=== PATIENT | female | born 1995 | race Caucasian/White ===

== ENCOUNTER 2017-01-18 05:52 | Day surgery (SDC) | payer BC ==
[~2017-01-18] VITALS: Ht 147.3 cm; Wt 36.7 kg
--- NOTE | ~2017-01-18 | EGD ---
EGD REPORT [facility] [address] [address] NAME: GEM ADLER : [birth year] [place]US [place] [facility] [place] [id number] AGE: 21 ADM/REG DATE : 01/18/17 MR#: [id number] REPORT SERV DATE: 01/18/17 DICTATED BY: LAILA MCCALLUM DATE: 01/18/17 REPORT STATUS : Draft [facility]: [facility] DATE: 01/18/17 End[facility] Center Patient Name: Gem Adler Date of : 1995 Attending MD: LAILA MCCALLUM MD Procedure Date No Time: 01/18/2017 Procedure: Upper GI endoscopy Indications: Dysphagia, Heartburn, Suspected esophageal reflux Referring MD: ANNA BISHOP Medicines: as per anesthesia Complications: No immediate complications. Procedure: After obtaining informed consent, the endoscope was passed under direct vision. Throughout the procedure, the patient's blood pressure, pulse, and oxygen saturations were monitored continuously. The GIF [id number] was introduced through the mouth, and advanced to the fundus of the stomach. The upper GI endoscopy was accomplished without difficulty. The patient tolerated the procedure. Findings: Moderately severe esophagitis was found in the lower third of the esophagus. A benign-appearing, intrinsic moderate stenosis was found in the lower third of the esophagus. A large amount of food (residue) was found in the cardia and in the gastric fundus. Impression: - Moderately severe esophagitis. - Benign-appearing esophageal stricture. - A large amount of food (residue) in the stomach. Recommendation: - Follow an antireflux regimen. - Continue present medications. - Repeat the upper endoscopy for retreatment. Procedure Code(s): --- Professional --- 85859, Esophagoscopy, flexible, transoral; diagnostic, including collection of specimen(s) by brushing or washing, when performed (separate procedure) Diagnosis Code(s): --- Professional --- K20.9, Esophagitis, unspecified K22.2, Esophageal obstruction R13.10, Dysphagia, unspecified EGD REPORT [facility] [address] [place], [place] [address]. [address] NAME: GEM ADLER : [birth year] [place]US [place] [facility] [place] [id number] AGE: 21 ADM/REG DATE : 01/18/17 MR#: [id number] REPORT SERV DATE: 01/18/17 DICTATED BY: LAILA MCCALLUM. DATE: 01/18/17 REPORT STATUS : Draft TRANSCRIBED BY: [employer] DATE: 01/18/17 R12, Heartburn CPT copyright 2013 [employer]. All rights reserved. The codes documented in this report are preliminary and upon registrar college or university review may be revised to meet current compliance requirements. LAILA MCCALLUM MD 01/18/2017 7:38 AM This report has been signed electronically. Number of Addenda: 0 Note Initiated On: 01/18/2017 6:58 AM Scope Withdrawal Time 0 hours 0 minutes [address] [place], [place] [address] [address]
[~2017-01-18 05:52] MED LIST: KLONO5 PO; OMNICEF300 PO; PROAIR HFA INH; PROFERRIN ES12 MG PO; TRAZ50 PO; [UNRECOGNIZED DRUG - OTHER] PO
== END 2017-01-18 23:59 | disposition home or self-care (01) ==
LOC: DMU 05:52
PROVIDERS: Internal Medicine Gastroenterology
PROC: 0DJ08ZZ Inspection of Upper Intestinal Tract, Via Natural or Artificial Opening Endoscopic (ICD-10-PCS; principal; 2017-01-18 07:00)
DX: K20.9 Esophagitis, unspecified (principal); K22.2 Esophageal obstruction; F41.9 Anxiety disorder, unspecified; F32.9 Major depressive disorder, single episode, unspecified; Z98.890 Other specified postprocedural states; Z79.899 Other long term (current) drug therapy
CPT/HCPCS: 84703; J2405; J3010